=== PATIENT | male | born 1950 | race Caucasian/White ===

== ENCOUNTER → 2023-09-04 07:14 | Outpatient (REF) | payer MEDICARE, SELFPAY | LOC: MRI 07:14 | PROVIDERS: ATTENDING PHYSICIAN Physician Assistant Surgical; FAMILY PHYSICIAN Internal Medicine | DX: M25.512 Pain in left shoulder (principal) | CPT/HCPCS: 73221 ==

== ENCOUNTER → 2023-09-13 06:14 | Day surgery (SDC) | payer MEDICARE, SELFPAY ==
[2023-09-13 07:39] LABS: Glucose - Point of Care 111 mg/dl (70-99)
== END ==
LOC: GI 06:14
PROVIDERS: ATTENDING PHYSICIAN Specialist
DX: Z12.11 Encounter for screening for malignant neoplasm of colon (principal); Z86.010 Personal history of colon polyps; K59.00 Constipation, unspecified
CPT/HCPCS: G0105; 82962

== ENCOUNTER → 2023-09-23 13:20 | Outpatient (REF) | payer MEDICARE, SELFPAY ==
[2023-09-23 14:37] LABS: Hematocrit 42.4 % (39.0-52.0); Hemoglobin 14.6 g/dL (13.0-18.0); Mean Corp Hgb Conc. 34.4 g/dL (33.0-37.0); Mean Corpuscular Hgb 32.3 pg (27.0-31.0); Mean Corpuscular Volume 93.8 fL (80.0-94.0); Mean Platelet Volume 9.2 fL (7.4-10.4); Platelet Count 222 10^3/uL (130-400); Red Blood Cell Count 4.52 10^6/uL (4.70-6.10); Red Cell Dist. Width 11.8 % (11.5-14.5); White Blood Cell Count 5.6 10^3/uL (4.8-10.8)
== END ==
LOC: SDSPAT 13:20
PROVIDERS: ATTENDING PHYSICIAN Specialist; FAMILY PHYSICIAN Internal Medicine
DX: Z01.818 Encounter for other preprocedural examination (principal)
CPT/HCPCS: 36415; 85027; 93005

== ENCOUNTER 2023-09-27 06:18 | Day surgery (SDC) | payer MEDICARE, SELFPAY ==
[2023-09-23 13:54] VITALS: BMI 23.7
[2023-09-27] VITALS (9 sets, daily range): BP systolic 139–153; BP diastolic 76–86; BMI 23.7
[2023-09-27 10:23] LABS: Glucose - Point of Care 113 mg/dl (70-99)
[2023-09-27] MEDS: TYLENOL 1000 MG PO (10:26)
[2023-09-27] MEDS: NORMOSOL-R 1000 IV (10:26)
[2023-09-27] MEDS: CELEBREX 200 MG PO (10:26)
[2023-09-27 13:28] LABS: Glucose - Point of Care 161 mg/dl (70-99)
[2023-09-27] MEDS: DILAUDID 0.5 MG IV (13:45)
[2023-09-27] MEDS: ROXICODONE 5 MG PO (14:48)
== END 2023-09-27 15:08 | disposition home or self-care (01) ==
LOC: SDS 06:18
PROVIDERS: ATTENDING PHYSICIAN Specialist; FAMILY PHYSICIAN Internal Medicine
DX: M75.112 Incomplete rotator cuff tear or rupture of left shoulder, not specified as traumatic (principal); M75.32 Calcific tendinitis of left shoulder; M25.512 Pain in left shoulder
CPT/HCPCS: 29827; 82962; C1713

== ENCOUNTER → 2024-02-14 18:59 | Outpatient (REF) | payer MEDICARE, SELFPAY | LOC: MRI 3T 18:59 | PROVIDERS: ATTENDING PHYSICIAN Physician Assistant; FAMILY PHYSICIAN Internal Medicine | DX: M54.16 Radiculopathy, lumbar region (principal) | CPT/HCPCS: 72148 ==